=== PATIENT | female | born 1990 | race Hispanic/Latino ===

== ENCOUNTER 2020-02-19 01:01 | Inpatient (IN) ==
[2020-02-19 01:20] LABS: URINE SOURCE VOIDED
[2020-02-19 01:25] LABS: BILIRUBIN URINE NEGATIVE (NEGATIVE); BLOOD URINE MODERATE (NEGATIVE); COLOR YELLOW; GLUCOSE URINE NEGATIVE (NEGATIVE); KETONE URINE NEGATIVE (NEGATIVE); LEUKOCYTES URINE LARGE (NEGATIVE); NITRITE URINE NEGATIVE (NEGATIVE); PROTEIN URINE 30 mg/dL (NEGATIVE); SP GRAVITY URINE 1.021; TURBIDITY URINE HAZY (CLEAR); UROBILINOGEN URINE 2 mg/dL (NORMAL)
[2020-02-19] MEDS ORDERED: MINERAL OIL PO PRN (01:37)
[2020-02-19] MEDS ORDERED: BENADRYL PO PRN (01:37)
[2020-02-19] MEDS ORDERED: AMBIEN PO PRN (01:37)
[2020-02-19] MEDS ORDERED: BENADRYL IV PRN (01:37)
[2020-02-19] MEDS ORDERED: HYDROXYZINE IM PRN (01:37)
[2020-02-19] MEDS ORDERED: PITOCIN IM PRN (01:37)
[2020-02-19] MEDS ORDERED: PERI MEDS (DERMOPLAST/NUPERCAINAL/TUCKS) MISC PRN (01:37)
[2020-02-19] MEDS ORDERED: BOOSTRIX VACCINE IM ONE (01:37)
[2020-02-19] MEDS ORDERED: ATARAX PO PRN (01:37)
[2020-02-19] MEDS ORDERED: CYTOTEC PO PRN (01:37)
[2020-02-19] MEDS ORDERED: M-M-R II VACCINE SUBQ ONE (01:37)
[2020-02-19] MEDS ORDERED: XYLOCAINE-MPF 1% INJ PRN (01:37)
[2020-02-19] MEDS ORDERED: STADOL IV PRN (01:38)
[2020-02-19] MEDS ORDERED: AMPICILLIN 2 GM in NS 100 ML IV ONE (01:38)
[2020-02-19] MEDS ORDERED: ZOFRAN IV PRN (01:38)
[2020-02-19] MEDS ORDERED: PEPCID PO PRN ×2 (01:38)
[2020-02-19] MEDS ORDERED: REGLAN PO PRN (01:38)
[2020-02-19] MEDS ORDERED: KEFZOL 2 GM/D5W 2 GM/50 ML IVPB IV PRN (01:38)
[2020-02-19] MEDS ORDERED: TYLENOL PO PRN (01:38)
[2020-02-19] MEDS ORDERED: PEPCID IV PRN (01:38)
[2020-02-19] MEDS ORDERED: LR 500 ML IV ONE (01:38)
[2020-02-19] MEDS ORDERED: PERCOCET-5 PO PRN (01:39)
[2020-02-19] MEDS ORDERED: PERCOCET-10 PO PRN (01:39)
[2020-02-19] MEDS: LR 1,000 ML IV SCH (01:45)
[2020-02-19] MEDS ORDERED: SODIUM CHLORIDE 0.9% INJ SCH (01:45)
[2020-02-19] MEDS ORDERED: PITOCIN 30 UNITS/NS 30 UNIT/500 ML IV.SOLN IV SCH ×2 (01:45)
[2020-02-19] MEDS ORDERED: PITOCIN 20 UNITS/NS 20 UNITS/1,000 ML IV.SOLN IV SCH (01:45)
[2020-02-19 01:46] LABS: UR AMPHETAMINES QUAL NONE DETECTED (NONE DETECT); UR BARBITUATES QUAL NONE DETECTED (NONE DETECT); UR BENZODIAZEPIN QUAL NONE DETECTED (NONE DETECT); UR CANNABINOIDS QUAL NONE DETECTED (NONE DETECT); UR COCAINE QUAL NONE DETECTED (NONE DETECT); UR METHADONE QUAL NONE DETECTED (NONE DETECT); UR OPIATES QUAL NONE DETECTED (NONE DETECT); UR OXYCODONE QUAL NONE DETECTED (NONE DETECT); UR PCP QUAL NONE DETECTED (NONE DETECT)
[2020-02-19 02:02] LABS: BASO# 0.02 X1000 (0.0-0.2); BASO% 0.2 % (0.0-0.8); EOS# 0.06 X1000 (0.0-0.7); EOS% 0.6 % (0.0-10.0); HEMATOCRIT 36.7 % (37.0-47.0); HEMOGLOBIN 11.9 g/dL (12.0-16.0); IMM GRAN# 0.06 X1000 (0.0-0.04); IMM GRAN% 0.6 % (0.0-0.5); LYMPH# 2.58 X1000 (1.2-3.4); LYMPH% 25.9 % (20.5-51.1); MCH 25.8 PG (27-31); MCHC 32.4 g/dL (33-37); MCV 79.4 FL (81-99); MONO# 0.81 X1000 (0.11-0.59); MONO% 8.1 % (1.7-9.3); MPV 10.7 FL (7.4-10.4); NEUT# 6.43 X1000 (1.4-6.5); NEUT% 64.6 % (42.2-75.2); PLT 336 X1000 (130-400); RBC 4.62 XMIL (4.2-5.4); RDW 15.7 % (11.5-14.5); WBC 9.96 X1000 (4.8-10.8)
[2020-02-19 02:29] LABS: RPR NON-REACTIVE (NONREACTIVE); RUBELLA SCREEN IMMUNE (IMMUNE)
[2020-02-19 03:09] LABS: RAPID HIV PRESUMPTIVE NEGATIVE
--- NOTE | 2020-02-19 03:55 | OPERATIVE NOTE ---
PROCEDURE DATE: 02/19/2020 PROCEDURE: Normal spontaneous vaginal delivery. DELIVERY NOTE: The patient is a 29-year-old, female 3, para 2, at probable term who presented in active labor. She proceeded to have a spontaneous vaginal delivery of a full-term living female child at 0211 hours on 02/19/2020. The infant weighed 6 pounds 9 ounces and 's were 9 and 10. The infant breathed and cried on delivery, and moved all extremities well. Cord blood was taken as per routine. The placenta was delivered uneventfully, noted to have a three-vessel cord and no abnormalities. The perineum is intact. Bleeding was normal. The patient's vital signs were stable. She was taken for routine care. [facility]
[2020-02-19] MEDS ORDERED: AMPICILLIN 1 GM in NS 50 ML IV SCH (05:39)
--- NOTE | 2020-02-19 08:00 | HISTORY AND PHYSICAL ---
HISTORY OF PRESENT ILLNESS: This patient is a 29-year-old female, 3, para 2, with an estimated gestational age of 40 weeks and 2 days who presented to Labor and Delivery complaining of contractions. The patient had 2 previous spontaneous vaginal deliveries without complication in [facility]. She has had no previous care with this . She denies previous surgery. She denies medical problems. ALLERGIES: She has no known drug allergies. MEDICATIONS: None. PHYSICAL EXAMINATION: VITAL SIGNS: Her vital signs were stable. She had a temperature of 98.4. Her pulse was 75. Her blood pressure was 114/69. CARDIOVASCULAR: Exam was benign. LUNGS: Exam was benign. ABDOMEN: Soft. Noted gravid uterus with contractions approximately every 3 to 5 minutes, moderate. EXTREMITIES: Unremarkable. PELVIC: Her pelvic exam was 9 cm, complete, +1, and unruptured, vertex presentation GENERAL: The patient was alert and oriented. She did not speak Slovenian and conversation was carried on via a civil transportation engineer, her spouse spoke a little bit of Slovenian ASSESSMENT: Multipara at term with no care in active labor. PLAN: Admit for delivery. Obtain lab work. Unknown GBS status. We will start antibiotics. MTDLina
[2020-02-19] MEDS: MOTRIN PO PRN (09:09)
[2020-02-19] MEDS: PERICOLACE PO SCH (21:07)
[2020-02-20 06:10] LABS: BASO# 0.02 X1000 (0.0-0.2); BASO% 0.2 % (0.0-0.8); EOS# 0.11 X1000 (0.0-0.7); EOS% 1.1 % (0.0-10.0); HEMATOCRIT 34.3 % (37.0-47.0); HEMOGLOBIN 10.8 g/dL (12.0-16.0); IMM GRAN# 0.04 X1000 (0.0-0.04); IMM GRAN% 0.4 % (0.0-0.5); LYMPH# 2.64 X1000 (1.2-3.4); LYMPH% 26.6 % (20.5-51.1); MCH 25.4 PG (27-31); MCHC 31.5 g/dL (33-37); MCV 80.7 FL (81-99); MPV 10.5 FL (7.4-10.4); NEUT# 6.42 X1000 (1.4-6.5); NEUT% 64.7 % (42.2-75.2); PLT 311 X1000 (130-400); RBC 4.25 XMIL (4.2-5.4); RDW 15.9 % (11.5-14.5); WBC 9.93 X1000 (4.8-10.8)
[2020-02-20] MEDS: MOTRIN PO PRN (06:58)
--- NOTE | 2020-02-20 07:09 | OB/GYN PROGRESS NOTE ---
- Subjective 29 yo PPD#1 s/p at term, no care Patient seen and examined. Pain controlled. She notes normal lochia. She is ambulating and voiding without difficulty. She is tolerating regular diet, denies N/V. Baby is in the nursery. She is bottlefeeding. OB Physical Exam Vital Signs - 8 hr 02/20/20 00:14 Temperature 96.5 F L Pulse Rate 71 Respiratory Rate 18 Blood Pressure 93/51 O2 Sat by Pulse Oximetry 97 - CONSTITUTIONAL General Appearance: appears well, alert, no apparent distress - EYES Eyes: PERRL/EOMI - HEAD, EARS, NOSE, MOUTH & THROAT HENMT: normocephalic/atraumatic - RESPIRATORY Respiratory: lungs clear, normal breath sounds, no respiratory distress - CARDIOVASCULAR Cardiovascular: regular rate, rhythm - GASTROINTESTINAL (ABDOMEN) Abdominal Exam: non tender, soft, other (fundus firm, below umbilicus) - MUSCULOSKELETAL Extremity: normal range of motion, non-tender, no pedal edema - NEUROLOGIC Neurologic: grossly normal - PSYCHIATRIC Psych/Mental Status: normal mood/affect Active Medications Generic Name Dose Route Start Last Admin Trade Name Freq PRN Reason Stop Dose Admin Acetaminophen 650 mg 02/19/20 01:38 Tylenol PO Q4-6H PRN PRN Headache Benzocaine 1 each 02/19/20 01:37 02/19/20 02:48 Constance Meds (Dermoplast/Nupercainal/Tucks) MISC 1 packet 3-4XDAY PRN PRN Administration episiotomy/hemorrhoids Butorphanol Tartrate 2 mg 02/19/20 01:38 Stadol IV PRN PRN Pain Diphenhydramine HCl 12.5 mg 02/19/20 01:37 Benadryl IV Q4H PRN PRN Itching Diphenhydramine HCl 25 mg 02/19/20 01:37 Benadryl PO Q4H PRN PRN Itching Famotidine 40 mg 02/19/20 01:38 Pepcid PO Q12H PRN PRN GI upset or indigestion Famotidine 20 mg 02/19/20 01:38 Pepcid IV Q12H PRN PRN GI upset or indigestion Famotidine 20 mg 02/19/20 01:38 Pepcid PO ONCE PRN PRN section Hydroxyzine HCl 50 mg 02/19/20 01:37 Atarax PO Q3-4H PRN PRN Nausea Hydroxyzine HCl 50 mg 02/19/20 01:37 Hydroxyzine IM Q3-4H PRN PRN Nausea Lactated Ringer's 1,000 mls @ 125 mls/hr 02/19/20 01:45 02/19/20 01:45 Lr IV 125 mls/hr .Q8H MAGDI Administration Cefazolin Sodium/Dextrose 2 gm in 50 mls @ 50 mls/hr 02/19/20 01:38 Kefzol 2 Gm/D5w IV ONCE PRN PRN section Ibuprofen 800 mg 02/19/20 01:37 02/20/20 06:58 Motrin PO 800 mg Q8H PRN PRN Administration cramping Lidocaine HCl 30 ml 02/19/20 01:37 Xylocaine-Mpf 1% INJ PRN PRN Perineal repair Metoclopramide HCl 10 mg 02/19/20 01:38 Reglan PO ONCE PRN PRN section Mineral Oil 30 ml 02/19/20 01:37 Mineral Oil PO PRN PRN Perineal massage Misoprostol 800 microgm 02/19/20 01:37 Cytotec PO PRN PRN Severe bleeding Ondansetron HCl 4 mg 02/19/20 01:38 02/19/20 03:59 Zofran IV 4 mg PRN PRN Administration Nausea Oxycodone/Acetaminophen 1 each 02/19/20 01:39 Percocet-10 PO Q3-4H PRN PRN Pain (7-10 on Pain Scale) Oxycodone/Acetaminophen 1 each 02/19/20 01:39 Percocet-5 PO Q3-4H PRN PRN Pain (1-6 on Pain Scale) Oxytocin 20 unit 02/19/20 01:37 Pitocin IM PRN PRN Severe bleeding Senna/Docusate Sodium 1 each 02/19/20 21:00 02/19/20 21:07 Pericolace PO 1 each QHS MAGDI Administration Sodium Chloride 5 - 10 ml 02/19/20 01:45 Sodium Chloride 0.9% INJ DIRECTED MAGDI Zolpidem Tartrate 10 mg 02/19/20 01:37 Ambien PO HS PRN PRN Sleep Laboratory Results - last 24 hr 02/20/20 06:00 WBC 9.93 RBC 4.25 Hgb 10.8 L Hct 34.3 L MCV 80.7 L MCH 25.4 L MCHC 31.5 L RDW Std Deviation 15.9 H Plt Count 311 MPV 10.5 H Immature Gran % (Auto) 0.4 Neut % (Auto) 64.7 Lymph % (Auto) 26.6 Walsh % (Auto) 7.0 Eos % (Auto) 1.1 Baso % (Auto) 0.2 Immature Gran # (Auto) 0.04 Neut # (Auto) 6.42 Lymph # (Auto) 2.64 Walsh # (Auto) 0.70 H Eos # (Auto) 0.11 Baso # (Auto) 0.02 OB Assessment & Plan (1) Status post vaginal delivery Status: Acute Plan: 29 yo PPD#1 s/p at term, no care 1. HD stable, afebrile 2. Routine PP care 3. Encourage ambulation 4. SS consult for no care
[2020-02-20 07:57] LABS: HEPATITIS B SURFACE ANTIGEN SEE COMMENTS
[2020-02-20] MEDS: LR 1,000 ML IV SCH (08:29)
[2020-02-20] MEDS: PERICOLACE PO SCH (20:57)
--- NOTE | 2020-02-21 07:10 | OB/GYN PROGRESS NOTE ---
- Subjective 29yo PPD#2 s/p currently without complaints. Ambulating and urinating without difficulty. tolerating regular diet, denies nausea/vomiting. +bottle feeding. Reports decreased lochia. Declined contraception options. OB Physical Exam Vital Signs - 8 hr 02/20/20 23:07 Temperature 97.2 F L Pulse Rate 70 Respiratory Rate 18 Blood Pressure 100/58 O2 Sat by Pulse Oximetry 97 - CONSTITUTIONAL General Appearance: appears well, alert, no apparent distress - RESPIRATORY Respiratory: lungs clear - CARDIOVASCULAR Cardiovascular: regular rate, rhythm - GASTROINTESTINAL (ABDOMEN) Abdominal Exam: non tender (FF below umbilicus), soft - MUSCULOSKELETAL Extremity: non-tender, no calf tenderness - SKIN Integumentary: normal color, normal turgor - PSYCHIATRIC Psych/Mental Status: normal mood/affect, oriented x 3 Active Medications Generic Name Dose Route Start Last Admin Trade Name Freq PRN Reason Stop Dose Admin Acetaminophen 650 mg 02/19/20 01:38 Tylenol PO Q4-6H PRN PRN Headache Benzocaine 1 each 02/19/20 01:37 02/19/20 02:48 Constance Meds (Dermoplast/Nupercainal/Tucks) MISC 1 packet 3-4XDAY PRN PRN Administration episiotomy/hemorrhoids Diphenhydramine HCl 25 mg 02/19/20 01:37 Benadryl PO Q4H PRN PRN Itching Famotidine 40 mg 02/19/20 01:38 Pepcid PO Q12H PRN PRN GI upset or indigestion Famotidine 20 mg 02/19/20 01:38 Pepcid PO ONCE PRN PRN section Hydroxyzine HCl 50 mg 02/19/20 01:37 Atarax PO Q3-4H PRN PRN Nausea Hydroxyzine HCl 50 mg 02/19/20 01:37 Hydroxyzine IM Q3-4H PRN PRN Nausea Ibuprofen 800 mg 02/19/20 01:37 02/20/20 06:58 Motrin PO 800 mg Q8H PRN PRN Administration cramping Metoclopramide HCl 10 mg 02/19/20 01:38 Reglan PO ONCE PRN PRN section Misoprostol 800 microgm 02/19/20 01:37 Cytotec PO PRN PRN Severe bleeding Oxycodone/Acetaminophen 1 each 02/19/20 01:39 Percocet-10 PO Q3-4H PRN PRN Pain (7-10 on Pain Scale) Oxycodone/Acetaminophen 1 each 02/19/20 01:39 Percocet-5 PO Q3-4H PRN PRN Pain (1-6 on Pain Scale) Oxytocin 20 unit 02/19/20 01:37 Pitocin IM PRN PRN Severe bleeding Senna/Docusate Sodium 1 each 02/19/20 21:00 02/20/20 20:57 Pericolace PO 1 each QHS MAGDI Administration Zolpidem Tartrate 10 mg 02/19/20 01:37 Ambien PO HS PRN PRN Sleep Laboratory Results - last 24 hr 02/19/20 01:47 Hep Bs Antigen SEE COMMENTS OB Assessment & Plan (1) Status post vaginal delivery Status: Acute Plan: 29 yo PPD#2 s/p at term, no care 1. HD stable, afebrile 2. Routine PP care 3. Encourage ambulation 4. SS consult for no care 5. Discharge home today
[2020-02-21 07:29] VITALS: BP 94/54
[2020-02-21 10:55] LABS: HIV ANTIBODY SCREEN SEE COMMENTS
== END 2020-02-21 12:15 | disposition home or self-care (01) | DRG 807 ==
LOC: EDBD → OPLD 01:01 → LD 01:05
PROVIDERS: ADMIT Obstetrics & Gynecology; ATTEND Obstetrics & Gynecology